=== PATIENT | female | born 1960 | race Caucasian/White ===

== ENCOUNTER 2022-11-07 13:43 | Emergency (ER) | payer BC ==
[~2022-11-07] VITALS: Ht 162.6 cm; Wt 65.8 kg
[2022-11-07] MEDS ORDERED: HYDROCODONE-ACE15 M2 PO (14:00)
[2022-11-07] MEDS ORDERED: VALSARTAN4 MG/1 ML PO (14:00)
[2022-11-07] MEDS ORDERED: VALTREX1000 MG PO (14:00)
[2022-11-07] MEDS ORDERED: KETO10TA2 PO (15:53)
== END 2022-11-07 16:53 | disposition home or self-care (01) ==
LOC: ER 13:43
DX: S92.352A Displaced fracture of fifth metatarsal bone, left foot, initial encounter for closed fracture (principal); X58.XXXA Exposure to other specified factors, initial encounter; Y93.89 Activity, other specified; Y92.9 Unspecified place or not applicable; Y99.9 Unspecified external cause status; Z88.0 Allergy status to penicillin